=== PATIENT | female | born 1990 | race Caucasian/White ===

== ENCOUNTER 2018-12-03 17:57 | Emergency (ER) | payer BC ==
[2018-12-03] MEDS ORDERED: Benzocaine 20% Topical Spray UD MUCMEM ONE (19:11)
[2018-12-03] MEDS ORDERED: Lidocaine 2% Viscous Solution 15 ML Cup PO ONE (19:11)
--- NOTE | 2018-12-03 19:19 | EDM.PDOC ---
ED HPI GENERAL MEDICAL PROBLEM - General Chief Complaint: ENT Problem Stated Complaint: TOOTH PAIN Time Seen by Provider: 12/03/18 18:57 Source of Information: Reports: Patient History Limitations: Reports: No Limitations - History of Present Illness INITIAL COMMENTS - FREE TEXT/NARRATIVE: HISTORY AND PHYSICAL: History of present illness: Patient is a 27-year-old female who presents to the emergency room today with complaints of right posterior dental pain and right upper tooth pain. She states she had recently finished antibiotics for a dental abscess but continues to have pain. She did bite into something 2-3 days ago and felt like her tooth had broken off in the right posterior molar. She does have a tooth fracture but was concerned there may be nerve root exposure. She does plan on seeing a dentist but is new to the area and has not seen anyone here. Patient denies any fever, chills, headache, change in vision, syncope or near syncope. Denies any chest pain, back pain, shortness of breath or cough. Denies any abdominal pain, nausea, vomiting, diarrhea, constipation or dysuria. Has not noted any blood in urine or stool. Patient has been eating and drinking appropriately. Review of systems: As per history of present illness and below otherwise all systems reviewed and negative. Past medical history: As per history of present illness and as reviewed below otherwise noncontributory. Surgical history: As per history of present illness and as reviewed below otherwise noncontributory. Social history: See social history for further information Family history: As per history of present illness and as reviewed below otherwise noncontributory. Physical exam: General: Well-developed and well-nourished 27-year-old female. Alert and oriented. Patient is tearful and states she is in moderate to severe pain. HEENT: Atraumatic, normocephalic, pupils equal and reactive bilaterally, negative for conjunctival pallor or scleral icterus, mucous membranes moist, TMs normal bilaterally, multiple dental caries are noted. She does have a tooth decay of #31, no obvious nerve root exposure. Her throat clear, neck supple, nontender, trachea midline. No drooling or trismus noted. No meningeal signs. No hot potato voice noted. Lungs: Clear to auscultation, breath sounds equal bilaterally, chest nontender. Heart: S1S2, regular rate and rhythm without overt murmur Abdomen: Soft, nondistended, nontender. Skin: Intact, warm, dry. No lesions or rashes noted. Extremities: Atraumatic, moves all extremities per self without difficulty or deficits, negative for cords or calf pain. Neurovascular unremarkable. Neuro: Awake, alert, oriented. Cranial nerves II through XII unremarkable. Cerebellum unremarkable. Motor and sensory unremarkable throughout. Exam nonfocal. Notes: We discussed the necessity of following up with the dentist for definitive care. Supportive care measures were reviewed and discussed. Voices understanding and is agreeable to plan of care. Denies any further questions or concerns at this time. Diagnostics: None Therapeutics: Dental balls Prescription: Clindamycin Impression: Dentalgia Dental Caries Plan: 1. Please take the antibiotic as prescribed. 2. Tylenol and/or ibuprofen as needed for pain management. "Tooth Balls" have been given to you; apply along the gumline every 2-3 hours as needed. Do not swallow these; external use only. Gaines for moderate to severe pain. This medication may cause drowsiness a do not take it will driving her needing to be functioning outside of the house. He will not receive any additional narcotics for dental pain to the emergency room. 3. Follow-up with a dentist for definitive care. Return to the ED as needed and as discussed. Definitive disposition and diagnosis as appropriate pending reevaluation and review of above. Right Oral/Mouth Pain Score (Numeric/FACES): 9 - Related Data Allergies Allergy/AdvReac Type Severity Reaction Status Date / Time amoxicillin Allergy Other Verified 12/03/18 18:17 Home Meds: Home Meds Acetaminophen/HYDROcodone [Gaines 325-5 MG] 1 tab PO Q4H PRN #20 tablet 12/03/18 [Rx] Clindamycin HCl [Cleocin HCl] 300 mg PO TID #30 capsule 12/03/18 [Rx] Past Medical History - Past Health History Medical/Surgical History: Denies Medical/Surgical History Social & Family History - Family History Family Medical History: Noncontributory - Tobacco Use Smoking Status *Q: Never Smoker - Recreational Drug Use Recreational Drug Use: No ED ROS ENT - Review of Systems Review Of Systems: ROS reveals no pertinent complaints other than HPI. ED EXAM, ENT - Physical Exam Exam: See Below (See dictation) Course - Vital Signs Last Recorded V/S: Last Vital Signs Temp 97.4 F 12/03/18 18:13 Pulse 98 12/03/18 18:13 Resp 18 12/03/18 18:13 BP 124/78 12/03/18 18:13 Pulse Ox 98 12/03/18 18:13 - Orders/Labs/Meds Meds: Medications Discontinued Medications Generic Name Dose Route Start Last Admin Trade Name Freq PRN Reason Stop Dose Admin Benzocaine 2 each 12/03/18 19:11 Hurricaine One 20% MUCMEM 12/03/18 19:12 ONETIME ONE Lidocaine HCl 15 ml 12/03/18 19:11 Xylocaine 2% Viscous PO 12/03/18 19:12 ONETIME ONE Departure - Departure Time of Disposition: 19:18 Disposition: Home, Self-Care 01 Clinical Impression: Dentalgia, Dental caries - Discharge Information Prescriptions: Acetaminophen/HYDROcodone [Gaines 325-5 MG] 1 tab PO Q4H PRN #20 tablet PRN Reason: Pain Clindamycin HCl [Cleocin HCl] 300 mg PO TID #30 capsule Referrals: PCP,Unknown [Primary Care Provider] -
== END 2018-12-03 19:40 | disposition home or self-care (01) ==
LOC: MW.ED 17:57
DX: K02.9 Dental caries, unspecified (principal); Z88.1 Allergy status to other antibiotic agents
CPT/HCPCS: 99282; A9270